=== PATIENT | male | born 1950 | race Caucasian/White ===

== ENCOUNTER → 2016-10-11 09:57 | Outpatient (CLI) | payer MEDICARE | END | disposition home or self-care (01) | LOC: D.MRI 09:57 | DX: M25.512 Pain in left shoulder (principal) ==

== ENCOUNTER → 2017-02-20 14:52 | Outpatient (CLI) | payer MEDICARE | END | disposition home or self-care (01) | LOC: D.RAD 14:52 | DX: R05 Cough (principal) ==

== ENCOUNTER 2017-05-15 05:17 | Day surgery (SDC) | payer MEDICARE ==
[2017-05-14 09:23] LABS: HEMATOCRIT 44.6 % (42.0-54.0); HEMOGLOBIN 16.4 g/dL (13.5-17.5); MCH 32.2 pg (26.0-34.0); MCHC 36.8 g/dL (31.0-37.0); MCV 87.6 fL (80.0-100.0); MEAN PLATELET VOLUME 9.1 fL (7.4-10.4); RBC 5.09 10x6/uL (4.20-6.10); RDW 12.7 % (11.5-14.5)
[2017-05-14 10:00] LABS: ANION GAP 15.7 mmol/L (8-16); CARBON DIOXIDE 22.8 mmol/L (21.0-32.0); CREATININE - SERUM 1.4 mg/dL (0.6-1.3); POTASSIUM - SERUM 3.5 mmol/L (3.5-5.1)
[~2017-05-15] VITALS: Ht 175.3 cm; Wt 94.8 kg
[~2017-05-15 05:17] MED LIST: BENADRYL25 MG PO; GLUCOSAMINE & C1 CAP PO; HYZAAR 100-25 T1 TAB PO; MOBIC7.5 MG PO; NORVASC5 MG PO; PRAVACHOL40 MG PO; XALATAN 0.0052.5 ML EACH EYE
[2017-05-15 06:23] VITALS: BP 134/69; Ht 175.3 cm; Wt 94.8 kg
--- NOTE | 2017-05-15 10:53 | NUR ---
1020 DISCAHRGE INSTRUCTIONS COMPLETE. PT HAS NO QUESTIONS OR CONCERNS AT THIS TIME. PT URINATED WITHOUT DIFFICULTY. ESCORTED OUT BY VOLUNTEER.
--- NOTE | 2017-05-15 16:52 | OP ---
PATIENT NAME: TANISHA FARR MEDICAL RECORD: [id number] :[birth year] LOCATION:[facility] ADMISSION DATE: SURGEON: LUIS BLANTON MD DATE OF OPERATION: 05/15/2017 SURGEON: Luis Blanton MD ANESTHESIA: MAC by Dr. Hopson. PREOPERATIVE DIAGNOSIS: Elevated PSA 3.7. PROCEDURE: Transrectal ultrasound and prostate biopsy. FINDINGS: 43 gram prostate, no hypoechoic areas. SPECIMENS: Prostate biopsy cores. ESTIMATED BLOOD LOSS: Minimal. CLINICAL HISTORY: This is a 66-year-old male, who has a positive family history of prostate cancer. His PSA has been rising and now it is up to 3.7. On digital rectal examination, he had a moderate sized prostate and no palpable nodules were noted. He comes to have a prostate biopsy. He has been taking Bactrim prophylaxis and he had Fleet enema last night. He has no allergies to medication. 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 DESCRIPTION OF PROCEDURE: The patient was given IV sedation. He was placed in the dorsal lithotomy position and prepped and draped. Transrectal ultrasound was performed. Prostate size measurements were obtained. No hypoechoic areas were seen. Sextant biopsies were obtained with at least 3 cores from each sextant. These are the left and right apex, mid and base sectors. Once all the specimens were obtained and sent in formalin in separate individually labeled bottles, the patient was awakened and brought to the recovery room. TRANSINT:[id number] Voice Confirmation ID: [id number] DOCUMENT ID: [id number] LUIS BLNATON MD at 1652 CC: [id number] DICTATION DATE: 05/15/17 0944 STRATEGY MANAGER: 05/15/17 1319 [facility] 05/15/17 [place] [address]
== END 2017-05-15 10:20 | disposition home or self-care (01) ==
LOC: D.OPS 05:17 → D.PAN 08:00 → D.OPS 08:00
PROVIDERS: Anesthesiology
DX: R97.20 Elevated prostate specific antigen [PSA] (principal); Z87.891 Personal history of nicotine dependence; I10 Essential (primary) hypertension; K21.9 Gastro-esophageal reflux disease without esophagitis; Z01.812 Encounter for preprocedural laboratory examination

== ENCOUNTER → 2017-07-25 12:06 | Outpatient (CLI) | payer MEDICARE ==
[2017-05-15 06:23] VITALS: BMI 30.9
== END | disposition home or self-care (01) ==
LOC: D.RAD 12:06
DX: M16.0 Bilateral primary osteoarthritis of hip (principal)

== ENCOUNTER → 2018-05-07 08:32 | Outpatient (CLI) | payer MEDICARE ==
[2017-05-15 06:23] VITALS: BMI 30.9
== END | disposition home or self-care (01) ==
LOC: D.MRI 08:32
DX: M25.572 Pain in left ankle and joints of left foot (principal)

== ENCOUNTER → 2019-10-22 10:24 | Outpatient (CLI) | payer MEDICARE ==
[2017-05-15 06:23] VITALS: BMI 30.9
== END | disposition home or self-care (01) ==
LOC: D.HCCARDIO 10:24
PROVIDERS: ATTEND Internal Medicine Cardiovascular Disease
DX: I47.1 Supraventricular tachycardia (principal)

== ENCOUNTER 2019-11-19 06:53 | Outpatient (CLI) | payer MEDICARE ==
[~2019-11-19] VITALS: Ht 175.3 cm; Wt 96.3 kg
--- NOTE | ~2019-11-19 | HEMODYNAMI ---
PATIENT:TANISHA FARR KENDRA MEDICAL RECORD: [id number] : 50 LOCATION:[facility] ADMISSION DATE: 11/19/19 Generatedon:11/19/20199:57 Patient name: TANISHA FARR Patient #: [id number] SSN: [id number] : 1950 Date of study: 11/19/2019 Page: Of Hemodynamic Procedure Report Patient Data Patient Demographics Procedure consent was obtained First Name: TANISHA Gender: Male Last Name: YORDAN : 1950 Middle Initial: KENDRA Age: 69 year(s) Patient #: [id number] Race: SSN: [id number] Additional ID: [id number] Contact details [address]: [address] [address] State: [place] City: [place] Zip code: [address] Past Medical History Allergies: No known allergies Admission Admission Data Admission Date: 11/19/2019 Admission Time: 6:53 Arrival Date: 11/19/2019 Arrival Time: 0:00 Admit Source: Other Insurance Payor: Medicare [facility] #: [id number] Height (in.): 69 BSA: 2.12 (m2) Height (cm.): 175.26 BMI: 31.34 (kg/m2) Weight (lbs.): 212.24 Weight (kg.): 96.27 Lab Results Lab Result Date: 11/19/2019 Lab Result Time: 0:00 Biochemistry Name Units Result Min Max BUN mg/dl 24 --(----)-* 7 18 Creatinine mg/dl 1.7 --(----)-* 0.6 1.3 eGFR ml/min 43 *-(----)-- 90 120 NONAFRICAN CBC Name Units Result Min Max Hematocrit % 46.7 --(-*--)-- 42 54 Hemoglobin g/dl 16.6 --(---*)-- 13.5 17.5 Procedure Procedure Types Cath Procedure Diagnostic Procedure LHC LHC w/Coronaries Sedation Charges Moderate Sedation up to 15 minutes Procedure Description Procedure Date Procedure Date: 11/19/2019 Procedure Start Time: 9:38 Procedure End Time: 9:54 Procedure Staff Name Function Sonny Potter MD Performing Physician Shey Wolfe RT Monitor Aletha Snyder RT Scrub Barrington Carter RN Nurse Procedure Data Cath Procedure Fluoroscopy Diagnostic fluoroscopy Total fluoroscopy Time: 2.1 time: 2.1 min min Diagnostic fluoroscopy Total fluoroscopy dose: 664 dose: 664 mGy mGy Contrast Material Contrast Material Type Amount (ml) Isovue 370 70 Entry Location Entry Primary Successful Side Size Upsize Upsize Entry Closure Succes sful Closure Location (Fr) 1 (Fr) 2 (Fr) Remarks Device Remarks Femoral Right 5 Fr Exoseal artery Estimated blood loss: 5 ml Diagnostic catheters Device Type Used For End Catheter Placement MULTIPACK JL 4.0 5Fr Procedure catheter MULTIPACK 3DRC 5Fr Procedure catheter MULTIPACK Pigtail 5 Fr Procedure catheter Procedure Complications No complications Procedure Medications Medication Administration Route Dosage Oxygen etCO2 Nasal cannula 2 l/min Lidocaine 2% added to field 20 Heparin Flush Bag added to field 2 bags (1000units/500ml NS) 0.9% NaCl I.V. 100 ml/hr Versed I.V. 1 mg Fentanyl I.V. 50 mcg Versed I.V. 1 mg Fentanyl I.V. 50 mcg Versed I.V. 1 mg Fentanyl I.V. 50 mcg Hemodynamics Rest BSA: 2.12 (m2) HGB: 16.6 (g/dl) O2 Consumption: Estimated: 249.8 (ml/min) O2 Con sumption indexed: Estimated:117.83 (ml/min/m) Heart Rate: 75 (bpm) Pressure Samples Time Site Value (mmHg) Purpose Heart Use Rate(bpm) 9:49 LV 81/5,16 Snapshot 74 9:49 AO 80/42(52) Pullback 73 9:49 LV 79/6,15 Pullback 73 Gradients Valve Time Site 1 Site 2 Mean SEP/DFP Peak To Heart Use (mmHg) (sec/min) Peak Rate (mmHg) (bpm) Aortic 9:49 LV AO 0 6 0 73 79/6,15 80/42(52) Calculations Valve P-P Mean Valve Index Valve Source Name Gradient Area Flow (cm2) Aortic 0 0 0 0 Snapshots Pre Cath Intra NCS Post Cath Vital Signs Time Heart Resp SPO2 etCO2 NIBP Rhythm Pain Sedation Rate (ipm) (%) (mmHg) (mmHg) Status Level (bpm) 9:17:30 74 12 94 0 106/62(82) NSR 0 (11) 10(A) , No pain 9:21:46 76 17 93 0 103/65(80) NSR 0 (11) 10(A) , No pain 9:26:00 73 12 93 0 96/62(70) NSR 0 (11) 10(A) , No pain 9:30:16 70 14 93 0 94/56(74) NSR 0 (11) 10(A) , No pain 9:34:30 72 14 94 0 88/57(69) NSR 0 (11) 10(A) , No pain 9:38:42 72 13 94 0 89/54(68) NSR 0 (11) 9(A) , No pain 9:42:56 68 15 93 0 85/51(66) NSR 0 (11) 9(A) , No pain 9:47:10 72 15 93 0 89/48(66) NSR 0 (11) 9(A) , No pain 9:51:26 72 14 94 0 90/46(62) NSR 0 (11) 10(A) , No pain Medications Time Medication Route Dose Verified Delivered Reason Notes Effe ctiveness by by 9:24:30 Oxygen etCO2 2 Sonny Buffie used for Nasal l/min Tariq Carter RN procedure cannula 9:24:37 Lidocaine 2% added 20ml Sonny Sonny for local to vial Tariq Potter MD anesthetic field 9:24:43 Heparin Flush added 2 Sonny Sonny used for Bag to bags Tariq Potter MD procedure (1000units/500ml field NS) 9:24:52 0.9% NaCl I.V. 100 Sonny Buffie Per ml/hr Tariq Carter RN physician 9:33:17 Versed I.V. 1 mg Sonny Buffie for Tariq Carter RN sedation 9:33:23 Fentanyl I.V. 50 Sonny Buffie for mcg Tariq Carter RN sedation 9:35:28 Versed I.V. 1 mg Sonny Buffie for Tariq Carter RN sedation 9:35:31 Fentanyl I.V. 50 Sonny Buffie for mcg Potter MD Carter RN sedation 9:39:47 Versed I.V. 1 mg Sonny Barrington for Tariq Carter RN sedation 9:39:51 Fentanyl I.V. 50 Sonny Ferris for lee ann Carter RN sedation Procedure Log Time Note 8:58:53 Informed consent obtained and on chart 8:59:37 Patient allergic to No known allergies 8:59:47 Diagnostic Cath Status : Elective 9:00:01 Procedure Status Elective Heart Cath (OP). 9:00:07 Barrington Carter RN sent for patient. Start room use. 9:00:09 Time tracking: Regular hours (M-F 7:00 - 5:00) 9:00:13 Plan of Care:Hemodynamics will remain stable., Cardiac rhythm will remain stable., Comfort level will be maintained., Respiratory function will remain adequate., Patient/ family verbilizes understanding of procedure., Procedure tolerated without complication., Recovers from procedure without complications.. 9:00:20 H&P Date Dictated: 11/19/2019 New H&P dictated by physician.. 9:00:22 Pre-procedure instructions explained to patient. 9:00:22 Pre-op teaching completed and patient verbalized understanding. 9:00:24 Family in waiting room. 9:00:25 Patient NPO since Midnight. 9:01:06 Lab Result : BUN 24 mg/dl 9:01:06 Lab Result : Creatinine 1.7 mg/dl 9:01:06 Lab Result : eGFR NONAFRICAN 43 ml/min 9:01:06 Lab Result : Hemoglobin 16.6 g/dl 9:01:06 Lab Result : Hematocrit 46.7 % 9:01:15 Lab results completed and on chart. 9:01:36 Stress Test: yes; abnormal inferior and apical 9:01:38 Alarms reviewed by RDora NDora 9:01:39 Sharps counted by scrub and verified by Prasad 9:02:20 Arrival Date: 11/19/2019 12:00:00 AM 9:02:20 Admit Source: Other 9:02:27 Insurance Payor : Medicare 9:02:45 Patient Height : 69 inches 9:02:51 Patient Weight : 212.24 lbs 9:04:46 Risk of Mortality: 0.2 9:04:49 Risk of blood transfusion: 0.5 9:04:52 Risk of HARJINDER: 3.0 9:05:02 Patient received from Pre/Post Procedure Room to CCL 1 Alert and oriented. Tansferred to table in Supine position. 9:05:03 Warm blankets applied, and adriel hugger turned on for patient comfort. 9:05:03 Correct patient and procedure confirmed by team. 9:05:04 ECG and BP/O2 sat monitors applied to patient. 9:05:07 Is the patient allergic to Iodine/contrast media? No. 9:16:14 Vital chart was started 9:16:15 Full Disclosure recording started 9:16:18 Was the patient premedicated? Yes 9:16:22 Is patient on blood thinner?No 9:16:25 Patient diabetic? Yes. 9:16:27 If diabetic: On Metformin? No 9:16:28 ----Pre-sedation anethsthesia assessment.---- 9:16:31 Previous problem with sedation/anesthesia? No ? 9:16:33 Snore? Yes 9:17:09 Sleep apnea? Yes 9:17:10 Deviated septum? No 9:17:12 Opens mouth fully? Yes 9:17:14 Sticks out tongue? Yes 9:18:01 Airway obstruction? No ? 9:18:03 Dentures? No ? 9:18:11 Pre procedure: right dorsailis pedis pulse 2+ Normal; easily identifiable; not easily obliterated 9:18:13 Modified Charbel's test Ulnar > 7 seconds. 9:18:16 Patient pain scale 0/10 ?. 9:18:23 IV patent on arrival in left antecubital with 0.9% NaCl at O. 9:18:30 Right groin area was prepped with chlora-prep and draped in sterile fashion 9:18:33 Baseline sample Acquired. 9:18:38 Rhythm: sinus rhythm 9:19:15 Use device set Femoral Dx 9:19:17 ACIST Syringe (09002) opened to sterile field. 9:19:17 Bag Decanter () opened to sterile field. 9:19:18 Medline Cath Pack ([id number]) opened to sterile field. 9:19:19 ACIST Hand Control (32232) opened to sterile field. 9:19:19 ACIST Manifold (73088) opened to sterile field. 9:19:20 DIAGNOSTIC Multipack 5Fr catheter set ([id number]) opened to sterile field. 9:19:21 SHEATH 5FR [place] ([id number]) opened to sterile field. 9:19:22 EMERALD Guide Wire (044-567) opened to sterile field. 9:24:30 Oxygen 2 l/min etCO2 Nasal cannula was administered by Barrington Carter RN; used for procedure; Verbal order read back and verified. 9:24:37 Lidocaine 2% 20ml vial added to field was administered by Sonny Potter MD; for local anesthetic; Verbal order read back and verified. 9:24:43 Heparin Flush Bag (1000units/500ml NS) 2 bags added to field was administered by Sonny Potter MD; used for procedure; Verbal order read back and verified. 9:24:52 0.9% NaCl 100 ml/hr I.V. was administered by Barrington Carter RN; Per physician; Verbal order read back and verified. 9:29:28 --------ALL STOP TIME OUT------ 9:29:28 Final Timeout: patient, procedure, and site verified with staff and physician. All members of the team are in agreement. 9:29:30 Right groin site verified by team. 9:29:34 Fire Safety Assessment: A--An alcohol-based skin anteseptic being used preoperatively., C--Open oxygen or nitrous oxide is being used., D--An ESU, laser, or fiber-optic light is being used. 9:29:38 Physical assessment completed. ASA score P 2 - A patient with mild systemic disease as per Sonny Potter MD. 9:29:44 3b) 30-44 Moderately reduced kidney function. 9:29:50 Maximum allowable contrast dose (3.7 X eGFR X 0.75)119 ml. 9:29:55 Sedation plan: IV Moderate Sedation Medication:Versed, Fentanyl 9:33:17 Versed 1 mg I.V. was administered by Barrington Carter RN; for sedation; Verbal order read back and verified. 9:33:23 Fentanyl 50 mcg I.V. was administered by Barrington Carter RN; for sedation; Verbal order read back and verified. 9:35:28 Versed 1 mg I.V. was administered by Barrington Carter RN; for sedation; Verbal order read back and verified. 9:35:31 Fentanyl 50 mcg I.V. was administered by Barrington Carter RN; for sedation; Verbal order read back and verified. 9:38:27 Procedure started. 9:38:59 Local anesthetic to right femoral artery with Lidocaine 2% by Sonny Potter MD.INITIAL ACCESS ONLY 9:39:47 Versed 1 mg I.V. was administered by Barrington Carter RN; for sedation; Verbal order read back and verified. 9:39:51 Fentanyl 50 mcg I.V. was administered by Barrington Carter RN; for sedation; Verbal order read back and verified. 9:41:27 A 5 Fr sheath was inserted into the Right Femoral artery 9:42:01 A MULTIPACK JL 4.0 5Fr catheter was advanced over the wire and used for Procedure. 9:42:14 LCA angiography performed. 9:42:32 Injector settings: Ml/sec: 3, Volume: 6, 9:43:32 Catheter exchanged over wire. 9:44:01 A MULTIPACK 3DRC 5Fr catheter was advanced over the wire and used for Procedure. 9:45:04 RCA angiography performed. 9:45:11 Injector settings: Ml/sec: 3, Volume: 6, 9:45:59 Catheter exchanged over wire. 9:46:13 ACCDominant side:Right 9:47:02 Catheter exchanged over wire. 9:47:09 A MULTIPACK Pigtail 5 Fr catheter was advanced over the wire and used for Procedure. 9:49:34 Injector settings: Ml/sec: 5, Volume: 15, 9:49:48 LV hemodynamics recorded. 9:49:50 LV gram done using PRESLEY 9:49:54 EF : 60 % 9:50:00 Catheter removed. 9:50:27 EXOSEAL 5Fr (EX500) opened to sterile field. 9:50:47 Sheath removed intact; hemostasis achieved with Exoseal to the Right Femoral artery. 9:50:52 Fluoroscopy time 02.10 minutes. 9:50:58 Fluoroscopy dose: 664 mGy 9:50:58 Flurop Dose total: 664 9:51:08 Dose Area Product 27166 mGy/cm. 9:51:10 Procedure ended.(Physican Out) 9:51:18 Contrast amount:Isovue 370 70ml. 9:51:20 Sharps counted by scrub and verified by R.N. 9:51:23 Maximum allowable dose exceeded? No. 9:51:28 Post-op/insertion site Right Femoral artery dressed using a 4 x 4 and Tegaderm. 9:51:43 Post right femoral artery:stable, soft, clean and dry 9:51:46 Post Procedure Pulses reassessed and unchanged 9:51:49 Post procedure: right dorsailis pedis pulse 2+ Normal; easily identifiable; not easily obliterated. 9:51:52 Post-procedure physical assessment completed. ASA score P 2 - A patient with mild systemic disease as per Sonny Potter MD. 9:51:55 Post procedure rhythm: unchanged. 9:51:58 Estimated blood loss: 5 ml 9:51:59 Post procedure instruction explained to patient.Patient verbalizes understanding. 9:52:00 Patient needs reinforcement of post procedure teaching. 9:52:04 Procedure Complication : No complications 9:52:07 [facility] Findings: MVD- MD will discuss options w/ pt 9:52:27 Procedure type changed to Cath procedure, Diagnostic procedure, LHC, [facility] w/Coronaries, Sedation Charges, Moderate Sedation up to 15 minutes 9:52:29 Procedure and supply charges have been captured, reviewed, submitted and are correct. 9:52:43 Operative report dictated upon procedure completion. 9:52:44 See physician's report for complete and final results. 9:52:46 Report given to Pre/Post Procedure Room. 9:52:49 Patient transfered to Pre/Post Procedure Room with Stretcher. 9:54:07 Vital chart was stopped 9:54:18 Procedure ended. 9:54:18 Full Disclosure recording stopped 9:55:04 End room use (Document Last) 9:56:27 End room use (Document Last) Device Usage Item Name Manufacture Quantity Catalog Hospital Part Current Minimal L ot# / Number Charge Number Stock Stock Serial# Code ACIST Acist 1 40918 162464 193747 [id number] 20 Syringe Medical (57683) Systems Inc Bag Microtek 1 721349 71493 459482 5 Decanter Medical Inc. () Medline Medline 1 [id number] 651557 75682 566723 5 Cath Pack ([id number]) ACIST Hand Acist 1 34450 536332 452169 171566 5 Control Medical (87050) Systems Inc ACIST Acist 1 75521 862405 136964 036662 5 Manifold Medical (84594) Systems Inc DIAGNOSTIC Cardinal 1 GI8497 072783 56950 234234 30 Multipack Health 5Fr catheter set (YH8976) SHEATH 5FR Terumo 1 YEP199 413170 885730 934228 5 [place] (QIH727) EMERALD Cardinal 1 917-768 242248 507994 622527 5 Guide Wire [facility] (419-176) MULTIPACK Cardinal 1 874107 5 JL 4.0 5Fr Health catheter MULTIPACK Cardinal 1 986991 5 3DRC 5Fr Health catheter MULTIPACK Cardinal 1 448352 5 Pigtail 5 Health Fr catheter EXOSEAL 5Fr Cardinal 1 EX500 320708 776056 839414 10 (EX500) Health Signature Audit [place] Stage Time Signature Unsigned Intra-Procedure 11/19/2019 Shey Wolfe 9:56:27 AM RT(R) Intra-Procedure 11/19/2019 Barrington Carter RN 9:56:47 AM Intra-Procedure 11/19/2019 Sonny Potter MD 9:57:09 AM [facility] [address] [place] [address]
[2019-11-19] MEDS ORDERED: SUDOGEST PE10 MG PO (07:58)
[2019-11-19] MEDS ORDERED: TIMOPTIC 0.5 % O5 ML LEFT EYE (08:01)
[2019-11-19] MEDS ORDERED: FLOMAX0.4 MG PO (08:01)
[2019-11-19 08:19] VITALS: BP 130/68; Ht 175.3 cm; Wt 96.3 kg
[2019-11-19 08:33] LABS: HEMATOCRIT 46.7 % (42.0-54.0); HEMOGLOBIN 16.6 g/dL (13.5-17.5); LYMPHOCYTES 22.5 % (15-50); MCH 31.6 pg (26.0-34.0); MCHC 35.5 g/dL (31.0-37.0); NEUTROPHILS 66.5 % (40-80); PLATELET COUNT 208 10x3/uL (130-400); RBC 5.25 10x6/uL (4.20-6.10); RDW 12.7 % (11.5-14.5); WBC 6.7 10x3/uL (4.8-10.8)
[2019-11-19 08:40] LABS: ANION GAP 11.4 mmol/L (8-16); CALCIUM 8.8 mg/dL (8.5-10.1); CARBON DIOXIDE 26.2 mmol/L (21.0-32.0); CHOL - HDL RATIO 6.2 ratio (2.3-4.9); CREATININE - SERUM 1.7 mg/dL (0.6-1.3); LDL-HDL RATIO 2.9 ratio (1.5-3.5); POTASSIUM - SERUM 3.6 mmol/L (3.5-5.1)
--- NOTE | 2019-11-19 10:05 | NUR ---
PT REC'D TO ROOM 6 VIA STRETCHER FROM PATIENT ACCESS SPECIALIST. MONITORS ESTAB. PT DROWSY. SEE TEACHERS AIDE. DR. RYAN IN TO UPDATE FRIEND AT BS PER PT REQUEST. ALARMS ON AND C/L IN REACH.
--- NOTE | 2019-11-19 10:20 | NUR ---
R GROIN SITE SOFT, NO S/S BLEEDING OR HEMATOMA. PULSES PALP. PT STILL DROWSY. DENIES PAIN OR NEEDS. ALARMS ON AND C/L IN REACH.
--- NOTE | 2019-11-19 10:50 | NUR ---
R GROIN SITE SOFT, C/D/I. PULSES PALP. PT RESTING QUIETLY, VSS. ALARMS ON AND C/L IN REACH.
--- NOTE | 2019-11-19 11:05 | NUR ---
R GROIN SITE SOFT, C/D/I. HOB ELEVATED AND SPRITE PROVIDED, REFUSED SANDWICH AT THIS TIME.
--- NOTE | 2019-11-19 11:25 | NUR ---
R GROIN SITE SOFT, C/D/I, NO S/S BLEEDING OR HEMATOMA. VSS. PT DENIES NEEDS.
--- NOTE | 2019-11-19 11:42 | NUR ---
R GROIN SITE SOFT, C/D/I. PIV D/C'D INTACT - DSG APPLIED. ALL D/C INSTRUCTIONS - INCLUDING RESTRICTIONS, MEDS AND F/U APPT. PT ALLOWED UP TO GET DRESSED AND GO TO BR INDEPENDENTLY.
--- NOTE | 2019-11-19 12:00 | NUR ---
PT D/C'D VIA W/C TO PRIVATE VEHICLE WITH ALL PAPER WORK AND BELONGINGS.
== END 2019-11-19 12:00 | disposition home or self-care (01) ==
LOC: D.CATH 06:53
PROVIDERS: ATTEND Internal Medicine Cardiovascular Disease
DX: I47.1 Supraventricular tachycardia (principal); R94.30 Abnormal result of cardiovascular function study, unspecified; I25.10 Atherosclerotic heart disease of native coronary artery without angina pectoris; E78.5 Hyperlipidemia, unspecified; I10 Essential (primary) hypertension